=== PATIENT | female | born 1995 ===

== ENCOUNTER 2016-09-09 17:57 | Emergency (ER) | payer SELFPAY ==
[~2016-09-09] VITALS: Ht 154.9 cm; Wt 58.2 kg
[2016-09-09 17:58] VITALS: TEMP 98.2
[2016-09-09 18:42] LABS: ALBUMIN 4.5 gm/dL (3.5-5.0); BILIRUBIN,TOTAL 1.1 mg/dL (0.0-1.0); CALCIUM 9.4 mg/dL (8.4-10.2); CREATININE, serum 0.91 mg/dL (0.52-1.25); POTASSIUM 3.5 mmol/L (3.4-5.0); TOTAL PROTEIN 7.7 gm/dL (6.4-8.2)
[2016-09-09 18:42] LABS: PH 5 (5-8); URINE APPEARANCE Clear; URINE BACTERIA None Seen /hpf; URINE BILIRUBIN Negative (NEGATIVE); URINE BLOOD 2+ (NEGATIVE); URINE COLOR Yellow; URINE GLUCOSE Negative (NEGATIVE); URINE KETONE Negative (NEGATIVE); URINE RBC 0-2 /hpf; URINE WBC 0-2 /hpf
[2016-09-09] MEDS ORDERED: TYLENOL W/COD1 UDTAB PO (19:33)
[2016-09-09] MEDS ORDERED: VOLTAREN 75 DR75 MG PO (19:33)
[2016-09-09] MEDS ORDERED: FLEXERIL 1010 MG/TAB PO (19:33)
[2016-09-09 19:39] VITALS: BP 128/86; PULSE 89
== END 2016-09-09 19:40 | disposition home or self-care (01) ==
LOC: COL.ER 17:57
PROVIDERS: Emergency Medicine
DX: S16.1XXA Strain of muscle, fascia and tendon at neck level, initial encounter (principal); S70.312A Abrasion, left thigh, initial encounter; S70.311A Abrasion, right thigh, initial encounter; V43.52XA Car driver injured in collision with other type car in traffic accident, initial encounter; W22.11XA Striking against or struck by driver side automobile airbag, initial encounter; Y92.410 Unspecified street and highway as the place of occurrence of the external cause

== ENCOUNTER 2016-09-18 12:13 | Emergency (ER) | payer SELFPAY ==
[~2016-09-18] VITALS: Ht 154.9 cm; Wt 58.2 kg
[~2016-09-18 12:13] MED LIST: FLEXERIL 1010 MG/TAB PO; TYLENOL W/COD1 UDTAB PO; VOLTAREN 75 DR75 MG PO
[2016-09-18 12:15] VITALS: BP 133/86; PULSE 80; TEMP 98.3
== END 2016-09-18 13:14 | disposition home or self-care (01) ==
LOC: COL.ER 12:13
DX: M25.562 Pain in left knee (principal); R20.2 Paresthesia of skin; M54.2 Cervicalgia